=== PATIENT | female | born 1940 | race Caucasian/White ===

== ENCOUNTER 2016-10-29 02:40 | Emergency (ER) | payer OTHER ==
[~2016-10-29] VITALS: Ht 175.3 cm; Wt 86.0 kg
[2016-10-29] MEDS ORDERED: MORPHINE SULFATE 4 MG/ML CPJ (NOT FOR IM USE) IV STA (03:45)
[2016-10-29] MEDS ORDERED: ONDANSETRON HCL 4MG/2ML VIAL IV STA (03:45)
[2016-10-29 04:00] LABS: EOSINOPHILS % 1.7 % (0.0-5.0); HEMATOCRIT. 25.1 % (36.0-48.0); HEMOGLOBIN. 8.1 g/dL (12.0-16.0); LYMPHOCYTES % 12.1 % (20.0-50.0); MEAN CORPUSCULAR HEMOGLOBIN 28.6 pg (28.0-32.0); MEAN CORPUSCULAR HGB CONC 32.5 g/dL (31.0-37.0); MEAN CORPUSCULAR VOLUME 88.1 fL (81.0-99.0); MEAN PLATELET VOLUME 7.8 fl (7.4-10.4); MONOCYTES % 9.6 % (2.0-8.0); NEUTROPHILS % 75.6 % (40.0-76.0); PLATELET 268 x1000/uL (130-400); RED BLOOD CELL COUNT 2.85 mill/uL (4.2-5.4); WHITE BLOOD COUNT 5.7 x1000/uL (4.5-11.0)
[2016-10-29 04:09] LABS: PARTIAL THROMBOPLASTIN TIME 25.3 sec (24.0-34.0); PROTHROMBIN TIME 10.7 sec
[2016-10-29 04:19] LABS: ALANINE AMINOTRANSFERASE 19 IU/L (13-61); ALBUMIN 3.1 g/dL (3.4-5.0); CALCIUM 8.8 mg/dL (8.5-10.1); CARBON DIOXIDE 32 mEq/L (21-32); INDEX HEMOLYSI 1 (1-3); INDEX ICTERIC 1 (1-4); INDEX LIPEMIC 1 (1-3); LIPASE 189 IU/L (73-393); TROPONIN I 0.22 ng/mL (0.00-0.04); UREA NITROGEN BLOOD 14 mg/dL (7-21); eGFR > 60 mL/min (>60)
[2016-10-29 04:30] LABS: ANION GAP 10; CHLORIDE 105 mEq/L (98-107)
[2016-10-29 06:32] LABS: CREATINE KINASE 126 IU/L (26-192); INDEX HEMOLYSI 1 (1-3)
[2016-10-29] MEDS ORDERED: ACETAMINOPHEN 325MG TABLET PO ONE (08:30)
[2016-10-29 14:01] VITALS: BP 145/72
[2016-10-29] MEDS ORDERED: IOHEXOL-350 100 ML BOTTLE ONE (14:43)
[2016-10-29] MEDS ORDERED: SODIUM CHLORIDE 0.9% 10ML VIAL ONE (14:43)
== END 2016-10-29 14:15 | disposition short-term general hospital (02) ==
LOC: ER 02:40
DX: S09.8XXA Other specified injuries of head, initial encounter (principal); H11.32 Conjunctival hemorrhage, left eye; R51 Headache; R79.89 Other specified abnormal findings of blood chemistry; R94.31 Abnormal electrocardiogram [ECG] [EKG]; G40.909 Epilepsy, unspecified, not intractable, without status epilepticus; W01.190A Fall on same level from slipping, tripping and stumbling with subsequent striking against furniture, initial encounter; Y93.89 Activity, other specified; Y92.092 Bedroom in other non-institutional residence as the place of occurrence of the external cause; Z96.651 Presence of right artificial knee joint; Z98.49 Cataract extraction status, unspecified eye; I25.10 Atherosclerotic heart disease of native coronary artery without angina pectoris; J44.9 Chronic obstructive pulmonary disease, unspecified; K44.9 Diaphragmatic hernia without obstruction or gangrene; K80.20 Calculus of gallbladder without cholecystitis without obstruction
CPT/HCPCS: 36415; 70450; 71010; 71275; 80053; 82550; 83690; 84484; 85025; 85610; 85730; 93005; 93970; 99285; A4216; Q9967; J2270; J2405

== ENCOUNTER 2018-03-09 01:26 | Inpatient (IN) | payer OTHER ==
[~2018-03-09] VITALS: Ht 175.3 cm; Wt 97.5 kg
[2018-03-09] MEDS ORDERED: ASPIRIN 81MG TABLET PO ONE (02:00)
[2018-03-09 02:40] LABS: BASOPHILS % 2.2 % (0.0-2.0); EOSINOPHILS % 1.8 % (0.0-5.0); HEMATOCRIT. 34.8 % (36.0-48.0); HEMOGLOBIN. 10.7 g/dL (12.0-16.0); LYMPHOCYTES % 20.7 % (20.0-50.0); MEAN CORPUSCULAR HEMOGLOBIN 24.4 pg (28.0-32.0); MEAN CORPUSCULAR VOLUME 78.9 fL (81.0-99.0); MONOCYTES % 14.3 % (2.0-8.0); PLATELET 189 x1000/uL (130-400); RED BLOOD CELL COUNT 4.41 mill/uL (4.2-5.4); RED CELL DISTRIBUTION WIDTH 20.2 % (11.6-14.6)
[2018-03-09 02:47] LABS: CHLORIDE 101 mEq/L (98-107)
[2018-03-09 02:50] LABS: INR 1.6; PARTIAL THROMBOPLASTIN TIME 45.5 sec (23.4-31.0); PROTHROMBIN TIME 15.6 sec (9.1-11.1)
[2018-03-09 07:07] LABS: CLARITY URINE CLOUDY (CLEAR); COLOR URINE DARK YELLOW (YELLOW); KETONES URINE TRACE (NEGATIVE); LEUKOCYTE ESTERASE URINE 1+ (NEGATIVE); NITRITE URINE NEGATIVE (NEGATIVE); OCCULT BLOOD URINE NEGATIVE (NEGATIVE); PROTEIN URINE 2+ (NEGATIVE); SPECIFIC GRAVITY URINE 1.019 (1.005-1.030)
[2018-03-09 10:00] VITALS: BP 151/86
[2018-03-09 10:20] VITALS: BP 151/86
[2018-03-09] MEDS ORDERED: CLONIDINE 0.1MG TABLET PO PRN (10:45)
[2018-03-09] MEDS ORDERED: ENOXAPARIN 40MG/0.4ML SYR SUBCUT SCH (10:45)
[2018-03-09] MEDS ORDERED: ONDANSETRON HCL 4MG/2ML INJ IV PRN (10:45)
[2018-03-09] MEDS ORDERED: ACETAMINOPHEN 325MG TABLET PO PRN (10:45)
[2018-03-09] MEDS ORDERED: LORAZEPAM 0.5MG TABLET PO PRN (10:45)
[2018-03-09] MEDS ORDERED: DIPHENHYDRAMINE 50MG/ML VIAL IV PRN (10:45)
[2018-03-09] MEDS ORDERED: MAGNESIUM/ALUMINUM HYDROXIDE/SIMETHICONE 30ML UDC PO PRN (10:45)
[2018-03-09 12:00] VITALS: BP 157/80
[2018-03-09] MEDS: SODIUM CHLORIDE 0.9% INJ 3ML FLUSH IVF SCH ×2 (14:00→22:13)
[2018-03-09] MEDS: POTASSIUM CHLORIDE 20MEQ TABLET SR PO SCH (14:32)
[2018-03-09] MEDS: ENOXAPARIN 100MG/ML SYR SUBCUT SCH ×2 (14:34→22:12)
[2018-03-09 15:42] LABS: CREATINE KINASE MB FRACTION 2.3 ng/mL (0.5-3.6)
[2018-03-09 16:00] VITALS: BP 147/75
[2018-03-09] MEDS ORDERED: FUROSEMIDE 40MG/4ML VIAL IVP NR (16:30)
[2018-03-09] MEDS ORDERED: POTASSIUM CHLORIDE 20MEQ TABLET SR PO NR (16:30)
[2018-03-09] MEDS: DIGOXIN 125MCG TABLET PO SCH (18:06)
[2018-03-09 20:00] VITALS: BP 128/62
[2018-03-09] MEDS: LEVETIRACETAM 500MG/5ML CUP PO SCH (20:40)
[2018-03-10] VITALS: BP 143/67
[2018-03-10] MEDS: SODIUM CHLORIDE 0.9% INJ 3ML FLUSH IVF SCH ×2 (05:33→13:45)
[2018-03-10 08:00] VITALS: BP 150/72
[2018-03-10] MEDS ORDERED: ASPIRIN 81MG EC TABLET PO SCH (09:00)
[2018-03-10] MEDS ORDERED: SPIRONOLACTONE 25MG TABLET PO SCH (09:00)
[2018-03-10] MEDS: POTASSIUM CHLORIDE 20MEQ TABLET SR PO SCH (09:09)
[2018-03-10] MEDS: LEVETIRACETAM 500MG/5ML CUP PO SCH (09:10)
[2018-03-10] MEDS: ENOXAPARIN 100MG/ML SYR SUBCUT SCH (09:25)
[2018-03-10 12:00] VITALS: BP 153/90
[2018-03-10 16:00] VITALS: BP 169/86
[2018-03-10] MEDS: DIGOXIN 125MCG TABLET PO SCH (17:31)
[2018-03-10 20:39] VITALS: BP 147/69
[2018-03-10] MEDS ORDERED: CARVEDILOL 6.25 MG TABLET PO SCH (21:00)
== END 2018-03-10 21:25 | disposition short-term general hospital (02) | DRG 280 ==
LOC: ER 01:26 → 7WST 04:56 → EDBEDREQTM 05:00 → EDBEDREQ 05:00 → ENRESERV 07:20 → 7WST 03-10 10:45
PROVIDERS: ADMIT Internal Medicine; ATTEND Internal Medicine
DX: I21.4 Non-ST elevation (NSTEMI) myocardial infarction (principal); I50.43 Acute on chronic combined systolic (congestive) and diastolic (congestive) heart failure; E44.1 Mild protein-calorie malnutrition; D68.9 Coagulation defect, unspecified; I11.0 Hypertensive heart disease with heart failure; E87.6 Hypokalemia; G40.909 Epilepsy, unspecified, not intractable, without status epilepticus; E66.9 Obesity, unspecified; D64.9 Anemia, unspecified; M19.90 Unspecified osteoarthritis, unspecified site; Z96.653 Presence of artificial knee joint, bilateral; I87.309 Chronic venous hypertension (idiopathic) without complications of unspecified lower extremity; F29 Unspecified psychosis not due to a substance or known physiological condition; H54.7 Unspecified visual loss; I48.91 Unspecified atrial fibrillation; Z82.49 Family history of ischemic heart disease and other diseases of the circulatory system; Z68.31 Body mass index [BMI] 31.0-31.9, adult; Z88.1 Allergy status to other antibiotic agents; Z88.8 Allergy status to other drugs, medicaments and biological substances
CPT/HCPCS: 36415; 71045; 80051; 80053; 81003; 82550; 82553; 83605; 83735; 83880; 84443; 84484; 85025; 85610; 85730; 93005; 93970; 96374; 99285; J1200; J1650; J1940

== ENCOUNTER 2018-03-15 12:29 | Emergency (ER) | payer OTHER ==
[~2018-03-15] VITALS: Ht 172.7 cm; Wt 89.0 kg
[2018-03-15] MEDS ORDERED: SODIUM CHLORIDE 0.9% 250 ML IV ONE (12:47)
[2018-03-15 13:29] LABS: HEMATOCRIT. 37.3 % (36.0-48.0); HEMOGLOBIN. 11.7 g/dL (12.0-16.0); MEAN CORPUSCULAR HEMOGLOBIN 24.6 pg (28.0-32.0); MEAN CORPUSCULAR VOLUME 78.1 fL (81.0-99.0); PLATELET 171 x1000/uL (130-400); RED BLOOD CELL COUNT 4.77 mill/uL (4.2-5.4); RED CELL DISTRIBUTION WIDTH 21.5 % (11.6-14.6)
[2018-03-15 13:35] LABS: CHLORIDE 95 mEq/L (98-107); INR 1.4; PARTIAL THROMBOPLASTIN TIME 36.8 sec (23.4-31.0); PROTHROMBIN TIME 13.7 sec (9.1-11.1)
[2018-03-15 13:52] LABS: PLATELET ESTIMATE NORMAL
[2018-03-15 14:40] LABS: CLARITY URINE CLEAR (CLEAR); COLOR URINE YELLOW (YELLOW); KETONES URINE NEGATIVE (NEGATIVE); LEUKOCYTE ESTERASE URINE NEGATIVE (NEGATIVE); NITRITE URINE NEGATIVE (NEGATIVE); OCCULT BLOOD URINE 1+ (NEGATIVE); PROTEIN URINE 1+ (NEGATIVE); SPECIFIC GRAVITY URINE 1.012 (1.005-1.030)
[2018-03-15 15:22] LABS: *COCAINE SCREEN URINE NEGATIVE (NEGATIVE); METHADONE URINE SCREEN NEGATIVE (NEGATIVE); OPIATES URINE SCREEN NEGATIVE (NEGATIVE); PHENCYCLIDINE URINE SCREEN NEGATIVE (NEGATIVE)
[2018-03-15 15:22] LABS: CHLORIDE 95 mEq/L (98-107)
[2018-03-15 15:23] LABS: *AMPHETAMINES SCREEN URINE NEGATIVE (NEGATIVE); *BARBITURATES SCREEN URINE NEGATIVE (NEGATIVE); *BENZODIAZEPINES SCREEN URINE NEGATIVE (NEGATIVE); CANNABINOID URINE SCREEN NEGATIVE (NEGATIVE)
[2018-03-15 15:26] LABS: AMMONIA 43 uMol/L (<32); ETHANOL BLOOD < 10 mg/dL
[2018-03-15] MEDS ORDERED: POTASSIUM CHLORIDE INJ 40 MEQ in DEXT 5% WATER 250 ML IV NR (15:45)
[2018-03-15] MEDS ORDERED: CEFTRIAXONE 1 G PREMIX 50 ML IV NR (15:45)
[2018-03-15] MEDS ORDERED: DOCUSATE SODIUM 100MG CAPSULE PO PRN (16:15)
[2018-03-15] MEDS ORDERED: ONDANSETRON HCL 4MG/2ML INJ IV PRN (16:15)
[2018-03-15] MEDS ORDERED: LORAZEPAM 2MG/ML CPJ IV PRN (16:15)
[2018-03-15] MEDS ORDERED: PIPERACILLIN/TAZ 3.375G PREMIX 50 ML IV SCH (16:15)
[2018-03-15] MEDS ORDERED: ENOXAPARIN 40MG/0.4ML SYR SUBCUT SCH (16:15)
[2018-03-15] MEDS ORDERED: ACETAMINOPHEN 325MG TABLET PO PRN (16:15)
[2018-03-15] MEDS ORDERED: DIPHENHYDRAMINE 50MG/ML VIAL IV PRN (16:15)
[2018-03-15] MEDS ORDERED: CLONIDINE 0.1MG TABLET PO PRN (16:15)
[2018-03-15] MEDS ORDERED: MAGNESIUM/ALUMINUM HYDROXIDE/SIMETHICONE 30ML UDC PO PRN (16:15)
[2018-03-15] MEDS ORDERED: GUAIFENESIN 200MG/10ML SUGAR FREE UDC PO PRN (16:15)
[2018-03-15] MEDS ORDERED: POTASSIUM CHLORIDE 20MEQ TABLET SR PO ONE (16:30)
[2018-03-15] MEDS ORDERED: HYDROCODONE/ACETAMINOPHEN 5/325MG TABLET PO PRN (16:30)
[2018-03-15] MEDS ORDERED: IPRATROPIUM/ALBUTEROL 0.5-3(2.5)MG/3ML NEB HHN SCH (17:00)
[2018-03-15] MEDS ORDERED: CLINDAMYCIN 600 MG in DEXTROSE 5% WATER 50 ML IV SCH (18:00)
[2018-03-15 21:00] VITALS: BP 121/53
[2018-03-16] MEDS ORDERED: FUROSEMIDE 40MG/4ML VIAL IVP SCH (09:00)
[2018-03-16] MEDS ORDERED: POTASSIUM CHLORIDE 20MEQ TABLET SR PO SCH (09:00)
== END 2018-03-15 21:11 | disposition short-term general hospital (02) ==
LOC: ER 13:06 → EDBEDREQ 15:42 → CANRESERV 15:59 → ENRESERV 15:59 → CANBEDREQ 16:48 → ER 21:11
DX: A41.9 Sepsis, unspecified organism (principal); R41.82 Altered mental status, unspecified; I11.0 Hypertensive heart disease with heart failure; I50.9 Heart failure, unspecified; Z88.0 Allergy status to penicillin; Z88.1 Allergy status to other antibiotic agents
CPT/HCPCS: 36415; 51702; 70450; 71045; 80053; 80305; 81003; 82140; 82962; 83605; 83690; 83735; 83880; 84443; 84484; 85025; 85610; 85730; 87086; 93005; 96361; 96365; 96368; 99291; G0482; J0696; J3480; J7030; J7050; J7060

== ENCOUNTER 2019-05-15 01:58 | Inpatient (IN) | payer MEDICARE, OTHER ==
[~2019-05-15] VITALS: Ht 175.3 cm; Wt 69.4 kg
[2019-05-15] MEDS ORDERED: SODIUM CHLORIDE 0.9% 1,000 ML IV ONE (03:29)
[2019-05-15] MEDS ORDERED: ONDANSETRON HCL 4MG/2ML INJ IV STA (03:29)
[2019-05-15 04:32] LABS: BASOPHILS % 1.3 % (0.0-2.0); HEMOGLOBIN. 11.7 g/dL (12.0-16.0); LYMPHOCYTES % 17.4 % (20.0-50.0); MEAN CORPUSCULAR HEMOGLOBIN 29.8 pg (28.0-32.0); MEAN CORPUSCULAR VOLUME 89.6 fL (81.0-99.0); MEAN PLATELET VOLUME 9.8 fl (7.4-10.4); NEUTROPHILS % 62.3 % (40.0-76.0); PLATELET 108 x1000/uL (130-400); RED BLOOD CELL COUNT 3.91 mill/uL (4.2-5.4); RED CELL DISTRIBUTION WIDTH 16.9 % (11.6-14.6)
[2019-05-15 04:39] LABS: INR 1.2; PROTHROMBIN TIME 12.2 sec (9.6-11.0)
[2019-05-15 04:42] LABS: CHLORIDE 106 mEq/L (98-107)
[2019-05-15] MEDS ORDERED: AZITHROMYCIN 500 MG in DEXT 5% WATER 250 ML IV ONE (05:30)
[2019-05-15] MEDS ORDERED: CEFTRIAXONE 1 G PREMIX 50 ML IV ONE (05:30)
[2019-05-15] MEDS ORDERED: HYDROCODONE/ACETAMINOPHEN 5/325MG TABLET PO PRN (06:30)
[2019-05-15] MEDS ORDERED: CLONIDINE 0.1MG TABLET PO PRN (06:30)
[2019-05-15] MEDS ORDERED: DOCUSATE SODIUM 100MG CAPSULE PO PRN (06:30)
[2019-05-15] MEDS ORDERED: ACETAMINOPHEN 325MG TABLET PO PRN (06:30)
[2019-05-15] MEDS ORDERED: ONDANSETRON HCL 4MG/2ML INJ IV PRN (06:30)
[2019-05-15] MEDS ORDERED: MAGNESIUM/ALUMINUM HYDROXIDE/SIMETHICONE 30ML UDC PO PRN (06:30)
[2019-05-15] MEDS: ASPIRIN 81MG EC TABLET PO SCH ×2 (10:00→10:58)
[2019-05-15] MEDS: AMLODIPINE 10MG TABLET PO SCH ×2 (10:00→10:58)
[2019-05-15] MEDS: ENOXAPARIN 40MG/0.4ML SYR SUBCUT SCH ×2 (10:00→10:59)
[2019-05-15 10:13] VITALS: BP 114/76
[2019-05-15 10:38] VITALS: BP 114/76
[2019-05-15] MEDS ORDERED: PNEUMOCOCCAL 23-VAL P-SAC VAC 0.5 ML IM ONE (10:45)
[2019-05-15] MEDS ORDERED: INFLUENZA VIRUS VACCINE(AFLURIA) 0.5ML SYR IM ONE (10:45)
[2019-05-15 12:00] VITALS: BP 132/56
[2019-05-15] MEDS ORDERED: CALC-870 MT (12:03)
[2019-05-15] MEDS ORDERED: ROSU20TA2 MT (12:03)
[2019-05-15] MEDS ORDERED: FURO20TA4 MT (12:03)
[2019-05-15] MEDS ORDERED: DABI110C PO (12:03)
[2019-05-15] MEDS ORDERED: POTA10CA42 PO (12:03)
[2019-05-15] MEDS ORDERED: METO-539 MT (12:03)
[2019-05-15] MEDS ORDERED: FERR325T22 MT (12:03)
[2019-05-15] MEDS ORDERED: SPIR25TA6 MT (12:03)
[2019-05-15] MEDS ORDERED: RISP0.5T19 PO (12:03)
[2019-05-15] MEDS ORDERED: MULT-1146 MT (12:03)
[2019-05-15] MEDS ORDERED: RISP1TAB26 MT (12:03)
[2019-05-15] MEDS ORDERED: DIGO125T82 MT (12:03)
[2019-05-15] MEDS ORDERED: KEPP500 MT (12:03)
[2019-05-15 17:01] LABS: BG BASE EXCESS 3.9 mmol/L (-2.0-2.0); BG CARBOXYHEMOGLOBIN 0.6 % (0.5-1.5); BG DEOXYHEMOGLOBIN 3.1 % (0.0-5.0); BG FRACTION INSPIRED OXYGEN 100; BG METHEMOGLOBIN 0.1 % (0.0-1.5); BG OXYGEN SATURATION 96.9 % (92.0-98.5); BG OXYHEMOGLOBIN 96.2 % (94.0-97.0); BG PCO2 45.8 mmHg (35.0-45.0); BG PH 7.419 (7.350-7.450); BG PO2 98.9 mmHg (75.0-100.0); BG SAMPLE SITE RIGHT RADIAL; BG TOTAL HEMOGLOBIN 11.6 g/dL (12.0-18.0); BG VENT MODE MASK - NRB
[2019-05-15 17:30] VITALS: BP 105/48
[2019-05-15 20:00] VITALS: BP 116/68
[2019-05-15] MEDS ORDERED: LORAZEPAM 2MG/ML CPJ IV PRN (20:30)
[2019-05-15] MEDS: SODIUM CHLORIDE 0.9% 1,000 ML IV SCH (22:24)
[2019-05-15] MEDS: LEVOFLOXACIN 500MG PREMIX 100 ML IV SCH (22:25)
[2019-05-16] VITALS (13 sets, daily range): BP systolic 90–133; BP diastolic 46–84
[2019-05-16] MEDS ORDERED: PNEUMOCOCCAL 23-VAL P-SAC VAC 0.5 ML IM ONE (06:00)
[2019-05-16 08:37] LABS: HEMATOCRIT. 32.1 % (36.0-48.0); MEAN CORPUSCULAR HEMOGLOBIN 30.2 pg (28.0-32.0); MEAN CORPUSCULAR VOLUME 88.4 fL (81.0-99.0); PLATELET 96 x1000/uL (130-400); RED BLOOD CELL COUNT 3.63 mill/uL (4.2-5.4); RED CELL DISTRIBUTION WIDTH 16.9 % (11.6-14.6)
[2019-05-16] MEDS: SODIUM CHLORIDE 0.9% 1,000 ML IV SCH ×2 (08:53→21:10)
[2019-05-16] MEDS: AMLODIPINE 10MG TABLET PO SCH (08:59)
[2019-05-16] MEDS: ENOXAPARIN 40MG/0.4ML SYR SUBCUT SCH (09:00)
[2019-05-16] MEDS ORDERED: DIGOXIN 500MCG/2ML AMP IV SCH (09:00)
[2019-05-16] MEDS: ASPIRIN 81MG EC TABLET PO SCH (09:00)
[2019-05-16 10:13] LABS: BG BASE EXCESS 2.5 mmol/L (-2.0-2.0); BG CARBOXYHEMOGLOBIN 1.1 % (0.5-1.5); BG DEOXYHEMOGLOBIN 4.7 % (0.0-5.0); BG HCO3 ACT 27.8 mmol/L (22.0-26.0); BG METHEMOGLOBIN 0.1 % (0.0-1.5); BG OXYGEN SATURATION 95.2 % (92.0-98.5); BG OXYHEMOGLOBIN 94.1 % (94.0-97.0); BG PCO2 45.9 mmHg (35.0-45.0); BG PO2 78.9 mmHg (75.0-100.0); BG SAMPLE SITE LEFT BRACHIAL; BG TOTAL HEMOGLOBIN 12.7 g/dL (12.0-18.0); BG VENT MODE NASAL CANNULA
[2019-05-16] MEDS ORDERED: LEVETIRACETAM 500MG TABLET PO SCH (10:30)
[2019-05-16 10:44] LABS: CHLORIDE 107 mEq/L (98-107)
[2019-05-16 10:55] LABS: LDL CHOLESTEROL 104 mg/dL (5-100)
[2019-05-16 10:57] LABS: HDL CHOLESTEROL 49 mg/dL (40-59)
[2019-05-16] MEDS ORDERED: AMIODARONE HCL 900 MG in DEXT 5% WATER 500 ML IV SCH (11:00)
[2019-05-16 11:02] LABS: PLATELET ESTIMATE DECREASED
[2019-05-16] MEDS ORDERED: PRADAXA 110 MG PO SCH (13:00)
[2019-05-16 14:18] LABS: T4 FREE 1.17 ng/dL (0.76-1.46)
[2019-05-16 14:25] LABS: CREATINE KINASE MB FRACTION 12.7 ng/mL (0.5-3.6)
[2019-05-16] MEDS ORDERED: DIGOXIN 500MCG/2ML AMP IV NR (15:45)
[2019-05-16] MEDS ORDERED: IPRATROPIUM BROMIDE (0.02%) 0.5MG/2.5ML NEB HHN PRN (16:15)
[2019-05-16] MEDS ORDERED: IOHEXOL-350 100 ML BOTTLE ONE (17:00)
[2019-05-16 19:36] LABS: CLARITY URINE TURBID (CLEAR); COLOR URINE DARK YELLOW (YELLOW); KETONES URINE NEGATIVE (NEGATIVE); LEUKOCYTE ESTERASE URINE 2+ (NEGATIVE); NITRITE URINE NEGATIVE (NEGATIVE); OCCULT BLOOD URINE 3+ (NEGATIVE); PROTEIN URINE 1+ (NEGATIVE); SPECIFIC GRAVITY URINE 1.056 (1.005-1.030)
[2019-05-16] MEDS: LEVOFLOXACIN 500MG PREMIX 100 ML IV SCH (20:00)
[2019-05-16] MEDS ORDERED: MORPHINE SULFATE 2 MG/ML CPJ (NOT FOR IM USE) IV PRN (20:30)
[2019-05-16] MEDS ORDERED: LEVETIRACETAM 500 MG in SODIUM CHLORIDE 0.9% 100 ML IV SCH (22:00)
[2019-05-17] VITALS: BP 115/61
[2019-05-17 01:44] LABS: CREATINE KINASE MB FRACTION 11.6 ng/mL (0.5-3.6)
[2019-05-17 02:00] VITALS: BP 105/60
[2019-05-17 03:00] VITALS: BP 102/55
[2019-05-17 03:30] VITALS: BP 0/0
[2019-05-17] MEDS ORDERED: ENOXAPARIN 40MG/0.4ML SYR SUBCUT SCH (09:00)
[2019-05-17] MEDS ORDERED: ASPIRIN 81MG TABLET PO SCH (09:00)
== END 2019-05-17 05:00 | disposition expired | DRG 291 ==
LOC: ER 02:48 → 5WST 05:30 → EDBEDREQ 05:31 → EDBEDREQTM 05:31 → ENRESERV 07:40 → 5WST 09:20 → 3WST 05-16 09:38
PROVIDERS: ADMIT Hospitalist; ATTEND Hospitalist
DX: I11.0 Hypertensive heart disease with heart failure (principal); J96.00 Acute respiratory failure, unspecified whether with hypoxia or hypercapnia; I50.43 Acute on chronic combined systolic (congestive) and diastolic (congestive) heart failure; D69.6 Thrombocytopenia, unspecified; E86.0 Dehydration; F03.90 Unspecified dementia, unspecified severity, without behavioral disturbance, psychotic disturbance, mood disturbance, and anxiety; G40.409 Other generalized epilepsy and epileptic syndromes, not intractable, without status epilepticus; I25.10 Atherosclerotic heart disease of native coronary artery without angina pectoris; I48.91 Unspecified atrial fibrillation; Z96.653 Presence of artificial knee joint, bilateral; R32 Unspecified urinary incontinence; R62.7 Adult failure to thrive; Z82.49 Family history of ischemic heart disease and other diseases of the circulatory system; Z68.22 Body mass index [BMI] 22.0-22.9, adult; Z88.1 Allergy status to other antibiotic agents; Z88.8 Allergy status to other drugs, medicaments and biological substances; Z79.899 Other long term (current) drug therapy
CPT/HCPCS: 36415; 36600; 71045; 71275; 80061; 81003; 82375; 82550; 82553; 82805; 82962; 83036; 83605; 83880; 84439; 84443; 84484; 85379; 90686; 90732; 93005; 93306; 93970; 96365; 99285; C1893; J0282; J0456; J0696; J1160; J1650; J1953; J1956; J2060; J2270; J7030; J7050; J7060; Q9967; A4315